=== PATIENT | female | born 1975 | race African-American/Black ===

== ENCOUNTER 2016-11-24 21:06 | Emergency (ER) | payer OTHER ==
[2016-11-24] MEDS ORDERED: Octyl 2-Cyanoacrylate 1 Tube TOP ONE (21:19)
[2016-11-24] MEDS ORDERED: Octyl 2-Cyanoacrylate 1 Tube ONE (21:20)
[2016-11-24] MEDS ORDERED: Diphtheria,Pertussis(Acell),Tetanus Vaccine 0.5 ML Syringe IM ONE (21:22)
--- NOTE | 2016-11-24 21:33 | EDM.PDOC ---
ED HPI GENERAL MEDICAL PROBLEM - General Chief Complaint: Bite:Animal, Insect Stated Complaint: DOG BITE RT RING FINGER Time Seen by Provider: 11/24/16 21:10 Source of Information: Reports: Patient History Limitations: Reports: No Limitations - History of Present Illness INITIAL COMMENTS - FREE TEXT/NARRATIVE: History of present illness: [41-year-old female comes in status post bite on her right fourth digit at the cuticle. Indicates that her puppy a small daschund had nipped at her causing a laceration. Patient is requiring a tetanus as well as closure of this 1 cm laceration at this] Review of systems: As per history of present illness and below otherwise all systems reviewed and negative. Past medical history: As per history of present illness and as reviewed below otherwise noncontributory. Surgical history: As per history of present illness and as reviewed below otherwise noncontributory. Social history: No reported history of drug or alcohol abuse. Family history: As per history of present illness and as reviewed below otherwise noncontributory. Physical exam: HEENT: Atraumatic, normocephalic, pupils reactive, negative for conjunctival pallor or scleral icterus, mucous membranes moist, throat clear, neck supple, nontender, trachea midline. Lungs: Clear to auscultation, breath sounds equal bilaterally, chest nontender. Heart: S1S2, regular, negative for clicks, rubs, or JVD. Abdomen: Soft, nondistended, nontender. Negative for masses or hepatosplenomegaly. Negative for costovertebral tenderness. Pelvis: Stable nontender. Genitourinary: Deferred. Rectal: Deferred. Extremities: Atraumatic, negative for cords or calf pain. Neurovascular unremarkable. Neuro: Awake, alert, oriented. Cranial nerves II through XII unremarkable. Cerebellum unremarkable. Motor and sensory unremarkable throughout. Exam nonfocal. Skin: 1 cm laceration mid nail at the cuticle of the fourth digit of the right hand Area cleaned Steri-Strip applied to decrease tension on scan and Dermabond to obtain ceiling closure Diagnostics: [] Therapeutics: [] Impression: [1 cm laceration] Plan: [Tetanus Augmentin] Definitive disposition and diagnosis as appropriate pending reevaluation and review of above. right ring finger Pain Score (Numeric/FACES): 8 - Related Data Allergies Allergy/AdvReac Type Severity Reaction Status Date / Time prochlorperazine Allergy Seizure Verified 07/28/15 16:22 [From Compazine] prochlorperazine edisylate Allergy Seizure Verified 07/28/15 16:22 [From Compazine] prochlorperazine maleate Allergy Seizure Verified 07/28/15 16:22 [From Compazine] Home Meds: Home Meds Amoxicillin/Potassium Clav [Augmentin 875-125 Tablet] 1 each PO BID #20 tablet 11/24/16 [Rx] Past Medical History - Past Health History Medical/Surgical History: Denies Medical/Surgical History HEENT History: Reports: None Cardiovascular History: Reports: None Respiratory History: Reports: None Gastrointestinal History: Reports: None Genitourinary History: Reports: None [employer]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: Musculoskeletal History: Reports: None Neurological History: Reports: None Psychiatric History: Reports: None Endocrine/Metabolic History: Reports: None Hematologic History: Reports: None Immunologic History: Reports: None Oncologic (Cancer) History: Reports: None Dermatologic History: Reports: None - Infectious Disease History Infectious Disease History: Reports: None Social & Family History - Family History Family Medical History: Noncontributory - Tobacco Use Smoking Status *Q: Never Smoker Second Hand Smoke Exposure: No - Caffeine Use Caffeine Use: Reports: Coffee, Tea - Recreational Drug Use Recreational Drug Use: No ED ROS GENERAL - Review of Systems Review Of Systems: See Below (See history of present illness) ED EXAM, ANIMAL BITE - Physical Exam Exam: See Below (See history of present illness) Course - Vital Signs Last Recorded V/S: Last Vital Signs Temp 36.1 C 11/24/16 21:12 Pulse 69 11/24/16 21:12 Resp 16 11/24/16 21:12 BP 129/88 11/24/16 21:12 Pulse Ox 98 11/24/16 21:12 - Orders/Labs/Meds Orders: Active Orders 24 hr Category Date Time Status Vaccines to be Administered [RC] PER UNIT ROUTINE Care 11/24/16 21:22 Ordered Meds: Medications Discontinued Medications Generic Name Dose Route Start Last Admin Trade Name Freq PRN Reason Stop Dose Admin Diphtheria/Tetanus/Acell Pertussis 0.5 ml 11/24/16 21:22 Adacel IM 11/24/16 21:23 .ONCE ONE Octyl Cyanoacrylate 1 applic 11/24/16 21:19 11/24/16 21:24 Dermabond Advance TOP 11/24/16 21:20 1 applic ONETIME ONE Administration Octyl Cyanoacrylate Confirm 11/24/16 21:20 11/24/16 21:25 Dermabond Advance Administered 11/24/16 21:21 Not Given Dose 1 applic .ROUTE .STK-MED ONE Departure - Departure Time of Disposition: 21:30 Disposition: Home, Self-Care 01 Condition: Good Clinical Impression: Laceration - Discharge Information Prescriptions: Amoxicillin/Potassium Clav [Augmentin 875-125 Tablet] 1 each PO BID #20 tablet Instructions: Animal Bite, [id number] Forms: ED Department Discharge Additional Instructions: The following information is given to patients seen in the emergency department who are being discharged to home. This information is to outline your options for follow-up care. We provide all patients seen in our emergency department with a follow-up referral. The need for follow-up, as well as the timing and circumstances, are variable depending upon the specifics of your emergency department visit. If you don't have a primary care physician on staff, we will provide you with a referral. We always advise you to contact your personal physician following an emergency department visit to inform them of the circumstance of the visit and for follow-up with them and/or the need for any referrals to a consulting specialist. The emergency department will also refer you to a specialist when appropriate. This referral assures that you have the opportunity for follow-up care with a specialist. All of these measure are taken in an effort to provide you with optimal care, which includes your follow-up. Under all circumstances we always encourage you to contact your private physician who remains a resource for coordinating your care. When calling for follow-up care, please make the office aware that this follow-up is from your recent emergency room visit. If for any reason you are refused follow-up, please contact the [facility] Emergency Department at and asked to speak to the emergency department charge nurse. Take medication as directed Keep hand clean and dry With primary care 1-2 days Turned ED as needed as discussed - My Orders Last 24 Hours: My Active Orders 11/24/16 21:22 Vaccines to be Administered [RC] PER UNIT ROUTINE - Assessment/Plan Last 24 Hours: My Active Orders 11/24/16 21:22 Vaccines to be Administered [RC] PER UNIT ROUTINE
[2016-11-24 22:52] VITALS: BP 113/76
== END 2016-11-24 22:10 | disposition home or self-care (01) ==
LOC: MW.ED 21:06
DX: S61.214A Laceration without foreign body of right ring finger without damage to nail, initial encounter (principal); Z88.8 Allergy status to other drugs, medicaments and biological substances; Z23 Encounter for immunization; W54.8XXA Other contact with dog, initial encounter
CPT/HCPCS: 90471; 90715; 99283; A9270; 99282